=== PATIENT | female | born 1990 | race Caucasian/White ===

== ENCOUNTER 2018-05-05 13:45 | Inpatient (IN) | payer OTHER ==
[2018-05-05] MEDS ORDERED: LR 1,000 ML IV (15:24)
[2018-05-05] MEDS: LACTATED RINGER'S 1000 ML IV (15:24)
[2018-05-05] MEDS ORDERED: OXYTOCIN 30 UNITS IN 0.9% NaCl 500ML IV BAG (J2590) As Ordered (15:42)
[2018-05-05] MEDS ORDERED: FENTANYL 2MCG/ML ROPIVACAINE 0.2% IN 0.9% NACL 200ML IVBAG As Ordered (15:43)
[2018-05-05 15:44] LABS: HEMATOCRIT 30.7 % (36.0-47.0); HEMOGLOBIN 10.1 g/dl (12.0-15.5); MEAN CORPUSCULAR HEMOGLOBIN 29.1 pg (27.0-33.0); MEAN CORPUSCULAR HGB CONC 32.9 g/dl (32.0-36.5); MEAN CORPUSCULAR VOLUME 88.5 fl (80.0-96.0); PLATELET COUNT, AUTOMATED 239 10^3/uL (150-450); RED BLOOD COUNT 3.47 10^6/uL (4.00-5.40); RED CELL DISTRIBUTION WIDTH 13.7 % (11.5-14.5); WHITE BLOOD COUNT 11.9 10^3/uL (4.0-10.0)
[2018-05-05] MEDS ORDERED: ONDANSETRON 4MG/2ML VIAL (J2405) IV (15:48)
[2018-05-05] MEDS ORDERED: ePHEDrine SULFATE 25 MG/5 ML(5MG/ML) SYRINGE IV (15:48)
[2018-05-05] MEDS: FENTANYL/ROPIVACAINE/NACL BAG 200 ML EPIDURAL (15:48)
[2018-05-05] MEDS ORDERED: LACTATED RINGER'S 1000 ML IV (15:48)
[2018-05-05] MEDS ORDERED: REFRIGERATOR IV KEYS XX (15:48)
[2018-05-05] MEDS ORDERED: EPIDURAL COMMENT XX (15:48)
[2018-05-05] MEDS ORDERED: NALOXONE INJ 0.4 MG/1 ML VIAL (J2310) IV (15:48)
[2018-05-05] MEDS ORDERED: diphenhydrAMINE INJ 50MG/ML VIAL (J1200) IV (15:48)
[2018-05-05] MEDS ORDERED: EPIDURAL/PCA KEYS XX (15:48)
[2018-05-05] MEDS: OXYTOCIN DRIP 30 UNITS in APPROPRIATE DILUENT 1 EA IV (16:11)
[2018-05-05] MEDS ORDERED: MEASLES,MUMPS,RUBELLA VACCINE INJ (MMR-II) (90707) SC (16:15)
[2018-05-05] MEDS ORDERED: RHOGAM 300 MCG (1500 IU) INJ (J2790) IM (16:15)
[2018-05-05] MEDS ORDERED: DIBUCAINE 1% OINTMENT 30GM TOP (16:15)
[2018-05-05] MEDS ORDERED: METOCLOPRAMIDE INJ 10MG/2ML VIAL (J2765) IV (16:15)
[2018-05-05] MEDS: ACETAMINOPHEN TAB 650MG DOSE (2X325MG) PO ×2 (17:09→22:42)
[2018-05-05] MEDS: DOCUSATE SODIUM 100 MG CAP PO (21:00)
[2018-05-06] MEDS: IBUPROFEN 800 MG TAB PO (05:08)
[2018-05-06] MEDS: PRENATAL VITAMINS CHEWABLE TABLET PO (07:57)
[2018-05-06] MEDS: DOCUSATE SODIUM 100 MG CAP PO (07:57)
== END 2018-05-06 17:20 | disposition home or self-care (01) | DRG 775 ==
LOC: M LDO 13:45 → M LDI 14:01 → M OBS 18:20
PROVIDERS: Obstetrics & Gynecology
PROC: 10E0XZZ Delivery of Products of Conception, External Approach (ICD-10-PCS; principal; 2018-05-05)
PROC: 0HQ9XZZ Repair Perineum Skin, External Approach (ICD-10-PCS; 2018-05-05)
DX: O70.0 First degree perineal laceration during delivery (principal); Z37.0 Single live birth; Z3A.39 39 weeks gestation of pregnancy